=== PATIENT | female | born 1990 | race Caucasian/White ===

== ENCOUNTER 2019-06-20 15:15 | Emergency (ER) | payer MEDICAID ==
[~2019-06-20] VITALS: Ht 157.5 cm; Wt 54.0 kg
[2019-06-20 15:31] VITALS: BP 109/59; Ht 157.5 cm; Wt 54.0 kg
[2019-06-20 15:51] LABS: microscopic required? YES; urine erythrocyte 3+ (NEGATIVE)
[2019-06-20 15:55] LABS: BASOPHIL % 0.2 % (0-2); PLATELET COUNT 325 x10^3mcL (130-400); RED CELL DISTRIBUTION WIDTH 12.4 % (11.5-14.5)
== END 2019-06-20 17:15 | disposition home or self-care (01) ==
LOC: ED 15:15
PROVIDERS: Emergency Medicine
DX: O20.8 Other hemorrhage in early pregnancy (principal); R10.30 Lower abdominal pain, unspecified; Z3A.01 Less than 8 weeks gestation of pregnancy
CPT/HCPCS: 36415

== ENCOUNTER 2019-06-23 10:23 | Emergency (ER) | payer MEDICAID ==
[~2019-06-23] VITALS: Ht 157.5 cm; Wt 55.8 kg
[2019-06-23 10:28] VITALS: Ht 157.5 cm; Wt 55.8 kg
[2019-06-23 11:55] VITALS: BP 102/59
== END 2019-06-23 11:55 | disposition home or self-care (01) ==
LOC: ED 10:23
DX: O03.9 Complete or unspecified spontaneous abortion without complication (principal); Z3A.01 Less than 8 weeks gestation of pregnancy; Z88.8 Allergy status to other drugs, medicaments and biological substances
CPT/HCPCS: 36415